=== PATIENT | male | born 1970 ===

== ENCOUNTER 2018-07-19 10:27 | Emergency (ER) | payer MEDICARE, MEDICAID ==
[2018-07-19 10:41] VITALS: BP 106/73; PULSE 84; RESP 16; TEMP 98.3; O2SAT 98
--- NOTE | 2018-07-19 10:58 | C.PDOC ---
History Of Present Illness 48 year old male presents to the ED for evaluation of a ring stuck on the right hand 4th digit since yesterday. Patient denies fever, numbness, tingling or any other associated symptoms. Time Seen by Provider: 07/19/18 10:46 Chief Complaint (Nursing): Medical Clearance History Per: Patient History/Exam Limitations: no limitations Onset/Duration Of Symptoms: Days Current Symptoms Are (Timing): Still Present Past Medical History Reviewed: Historical Data, Nursing Documentation, Vital Signs Vital Signs: Last Vital Signs Temp 98.3 F 07/19/18 10:40 Pulse 84 07/19/18 10:40 Resp 16 07/19/18 10:40 BP 106/73 07/19/18 10:40 Pulse Ox 98 07/19/18 10:40 Family History: States: Unknown Family Hx - Social History Hx Alcohol Use: No Hx Substance Use: No - Immunization History Hx Tetanus Toxoid Vaccination: No Hx Influenza Vaccination: No Hx Pneumococcal Vaccination: No Review Of Systems Except As Marked, All Systems Reviewed And Found Negative. Constitutional: Negative for: Fever Neurological: Negative for: Weakness, Numbness, Incoordination Physical Exam - Physical Exam Appears: Non-toxic Skin: Normal Color, Warm, Dry, No Other (erythema.) Head: Atraumatic, Normacephalic Extremity: Normal ROM (x4), Capillary Refill (less than 2 seconds.), Swelling (to the right hand 4th digit. ) Neurological/Psych: Oriented x3, Normal Speech, Normal Motor, Normal Sensation, Normal Reflexes Gait: Steady ED Course And Treatment O2 Sat by Pulse Oximetry: 98 (RA) Pulse Ox Interpretation: Normal Medical Decision Making Medical Decision Making: Progress/Update: Ring on the right 4th digit was removed with a ring cutter. Finger is still swollen and the portion that was under the ring is mildly erythematous. No fluc tuance, purulent material, induration. Advised patient to return to the ED for any signs of infection. Disposition - Disposition Disposition: HOME/ ROUTINE Disposition Time: 12:29 Condition: GOOD Additional Instructions: JOSE ANGEL NEAL, thank you for letting us take care of you today. Your provider was Rina Sparks MD and you were treated for FINGER PAIN. The emergency medical care you received today was directed at your acute symptoms. If you were prescribed any medication, please fill it and take as directed. It may take several days for your symptoms to resolve. Return to the Emergency Department if your symptoms worsen, do not improve, or if you have any other problems. Please contact your doctor or call one of the physicians/clinics you have been referred to that are listed on the Patient Visit Information form that is included in your discharge packet. Bring any paperwork you were given at discharge with you along with any medications you are taking to your follow up visit. Our treatment cannot replace ongoing medical care by a primary care provider outside of the emergency department. Thank you for allowing the [facility] team to be part of your care today. If you had an X-Ray or CT scan: A Radiologist will review the ED reading if any change in treatment is needed we will contact you. If you had a blood, urine, or wound culture: It will take several days for the results, if any change in treatment is needed we will contact you. If you had an STI test: It will take 48 hours for the results. Please call after 1 week if you have not heard back. Return to the ED immediately for any new symptoms such as: increaed pain, increased swelling, redness, pus, inability to move the finger, decreased sensation, or fever. Instructions: [employer] (DC) Forms: [employer] (Yi) - Clinical Impression Clinical Impression: Tight ring on finger - Scribe Statement The provider has reviewed the documentation as recorded by the Scribe (Colleen Law) Provider Attestation: All medical record entries made by the Scribe were at my direction and perso gareth dictated by me. I have reviewed the chart and agree that the record accurately reflects my personal performance of the history, physical exam, medical decision making, and the department course for this patient. I have also personally directed, reviewed, and agree with the discharge instructions and disposition.
[2018-07-19] MEDS ORDERED: Bacitracin 500 Units/gm Oint Foilpak UD ONE (13:01)
== END 2018-07-19 12:59 | disposition home or self-care (01) ==
LOC: UNMERGE 10:27 → C.ER 10:27 → MERGE 10:27 → C.ER 12:59
DX: S60.444A External constriction of right ring finger, initial encounter (principal); W49.04XA Ring or other jewelry causing external constriction, initial encounter; Y92.9 Unspecified place or not applicable